=== PATIENT | male | born 1945 | race Caucasian/White ===

== ENCOUNTER 2017-12-06 20:20 | Emergency (ER) | payer MEDICARE, BC ==
--- NOTE | 2017-12-06 21:07 | EDM.PDOC ---
ED HPI GENERAL MEDICAL PROBLEM - General Chief Complaint: Upper Extremity Injury/Pain Stated Complaint: "Have sore left arm and shoulder" Time Seen by Provider: 12/06/17 20:45 Source of Information: Reports: Patient History Limitations: Reports: No Limitations - History of Present Illness INITIAL COMMENTS - FREE TEXT/NARRATIVE: States that over the last 3 wees he has had pain in his left shoulder that will come and go. Has had this in the past and was given steroid shot for it. He states that he can't lay on that side as it hurts. Has been sleeping well because of the discomfort. This morning it was good and he could move it and about noon it started to hurt and it has been getting worse all after noon. He has limited ROM to the shoulder and elbow on the left. Does have a scratch to the distal wrist that he has had for about a week that he scratched on a tree. This is healing and is not red or warm. If he flexes the elbow it will also cause pain to the elbow and the shoulder. Denies any numbness or tingling to the shoulder. No fevers. Denies any trauma to the arm. States that his left side does feel week because it hurts to lift or move it. Onset: Gradual Location: Reports: Upper Extremity, Left Quality: Reports: Throbbing Associated Symptoms: Reports: No Other Symptoms. Denies: Fever/Chills - Related Data Allergies Allergy/AdvReac Type Severity Reaction Status Date / Time hydrochlorothiazide Allergy Dizziness Verified 12/06/17 20:34 Home Meds: Home Meds Calcium Carbonate [Calcium] 1 each PO DAILY 12/01/17 [History] Cholecalciferol (Vitamin D3) [Vitamin D3] 5,000 unit PO DAILY 12/01/17 [History] Glucosamine [Glucosamine Sulfate] 2 each PO DAILY 12/01/17 [History] Hydrochlorothiazide 25 mg PO DAILY 12/01/17 [History] Ibuprofen 200 mg PO DAILY PRN 12/01/17 [History] Lisinopril 20 mg PO BID 12/01/17 [History] Methotrexate 20 mg PO WEEKLY 12/01/17 [History] Metoprolol Tartrate 50 mg PO BID 12/01/17 [History] Multivitamin [Daily Multiple Vitamin] 1 each PO DAILY 12/01/17 [History] Potassium 99 mg PO DAILY 12/01/17 [History] Zinc Gluconate-Zinc Picolinate [Zinc] 30 mg PO DAILY 12/01/17 [History] hydrALAZINE HCl [Hydralazine HCl] 25 mg PO BID 12/01/17 [History] Past Medical History HEENT History: Reports: Hard of Hearing Cardiovascular History: Reports: Bypass, High Cholesterol, Hypertension, SOB on Exertion, Stents Respiratory History: Reports: SOB Other Gastrointestinal History: hemorrhoidectomy Musculoskeletal History: Reports: Arthritis, Gout Other Musculoskeletal History: hx of bursitis. Other Oncologic History: Leukemia - Past Surgical History Cardiovascular Surgical History: Reports: Carotid Endarterectomy Social & Family History - Tobacco Use Smoking Status *Q: Current Every Day Smoker Years of Tobacco use: 55 Packs/Tins Daily: 2 - Alcohol Use Days Per Week of Alcohol Use: 7 Number of Drinks Per Day: 5 Total Drinks Per Week: 35 - Recreational Drug Use Recreational Drug Use: No - Living Situation & Occupation Living situation: Reports: , with Spouse Occupation: Retired Review of Systems - Review of Systems Review Of Systems: See Below Constitutional: Reports: No Symptoms Respiratory: Reports: No Symptoms Cardiovascular: Reports: No Symptoms Musculoskeletal: Reports: Shoulder Pain (left), Arm Pain (left) Skin: Reports: Wound (left wrist) ED EXAM, GENERAL - Physical Exam Exam: See Below Exam Limited By: No Limitations General Appearance: Alert, WD/WN, Moderate Distress Respiratory/Chest: No Respiratory Distress, Lungs Clear, Normal Breath Sounds Cardiovascular: Regular Rate, Rhythm, No Edema Extremities: No Pedal Edema, Limited Range of Motion (to the left shoulder and elbow as it does cause increase in pain. Shoulder is only able to go about 80 degrees when the pain does increase. Increase in pain with flexion of the elbow or movement of the wrist wll cause increase in pain to the elbow area.) Neurological: Alert, Oriented Psychiatric: Normal Affect Skin Exam: Warm, Dry, Wound/Incision (to the distal left wrsit is scabbed. no drainage or redness noted.) Course - Vital Signs Last Recorded V/S: Last Vital Signs Temp 97.6 F 12/06/17 20:42 Pulse 74 12/06/17 20:42 Resp 20 12/06/17 20:42 BP 154/76 H 12/06/17 20:42 Pulse Ox 96 12/06/17 20:42 - Orders/Labs/Meds Labs: Laboratory Tests 12/06/17 12/06/17 Range/Units 20:55 20:55 WBC 10.4 H (5.0-10.0) 10^3/uL RBC 4.56 (4.50-6.00) 10^6/uL Hgb 13.2 L (14.0-18.0) g/dL Hct 38.8 L (40.0-54.0) % MCV 85.1 (82.0-94.0) fL MCH 28.9 (27.0-32.0) pg MCHC 34.0 (33.0-38.0) g/dL RDW Coeff of Flori 16.8 H (11.0-15.0) % Plt Count 190 (150-400) 10^3/uL Neut % (Auto) 76.2 (35-85) % Lymph % (Auto) 9.9 L (10-55) % [place] % (Auto) 12.7 (0-16) % Eos % (Auto) 1.1 (0-5) % Baso % (Auto) 0.1 (0-3) % Neut # (Auto) 7.93 H (1.80-7.00) 10^3/uL Lymph # (Auto) 1.03 (1.00-4.80) 10^3/uL [place] # (Auto) 1.32 H (0.00-0.80) 10^3/uL Eos # (Auto) 0.11 (0.00-0.45) 10^3/uL Baso # (Auto) 0.01 10^3/uL Sodium 127 L (136-145) mEq/L Potassium 4.1 (3.5-5.0) mEq/L Chloride 92 L (98-106) mEq/L Carbon Dioxide 22 (21-32) mmol/L BUN 13 D (7-18) mg/dL Creatinine 1.1 (0.7-1.3) mg/dL Est Cr Clr Drug Dosing TNP Estimated GFR (MDRD) > 60 (>=60) mL/min Glucose 142 H (75-99) mg/dL Uric Acid 7.5 H (3.5-7.2) mg/dL Calcium 8.2 L (8.4-10.1) mg/dL C-Reactive Protein 3.7 H (0.2-0.8) mg/dL Meds: Medications Discontinued Medications Generic Name Dose Route Start Last Admin Trade Name Billy PRN Reason Stop Dose Admin Methylprednisolone Acetate 80 mg 12/06/17 21:17 Depo-Medrol IM 12/06/17 21:18 ONETIME ONE - Re-Assessments/Exams Free Text/Narrative Re-Assessment/Exam: 12/06/17 21:19 discussed lab results with pt and . His sodium is low. He states that has happened in the past and was told that he needs to eat more salt. He hasn't been in the last few days and his says that he has been sweating it out. He states that he will start eating more again. Departure - Departure Time of Disposition: 21:21 Disposition: Home, Self-Care 01 Condition: Good Clinical Impression: Gout Qualifiers: Gout site: shoulder Gout etiology: unspecified cause Chronicity: acute Laterality: left Qualified Code(s): M10.9 - Gout, unspecified - Discharge Information Instructions: Low-Purine Eating Plan, Gout, [id number] Forms: ED Department Discharge Additional Instructions: rest shoulder and wrist as much as possible Ice to the area for comfort eat more salt to increase sodium as instructed by Dr. Preciado Use pain meds that you have at home as needed for comfort Follow up in the clinic if not improving. - Problem List & Annotations (1) Gout SNOMED Code(s): 61037715 Code(s): M10.9 - GOUT, UNSPECIFIED Status: Acute Priority: High Qualifiers: Gout site: shoulder Gout etiology: unspecified cause Chronicity: acute Laterality: left Qualified Code(s): M10.9 - Gout, unspecified
[2017-12-06 21:11] LABS: CHLORIDE,CL 92 mEq/L (98-106); SODIUM,NA 127 mEq/L (136-145)
[2017-12-06] MEDS: methylPREDNISolone Acetate 80 MG/ML SDV IM ONE (21:22)
== END 2017-12-06 21:30 | disposition home or self-care (01) ==
LOC: CC.ED 20:20
DX: M10.9 Gout, unspecified (principal); E78.00 Pure hypercholesterolemia, unspecified; I10 Essential (primary) hypertension; I25.810 Atherosclerosis of coronary artery bypass graft(s) without angina pectoris; F17.210 Nicotine dependence, cigarettes, uncomplicated; Z79.899 Other long term (current) drug therapy
CPT/HCPCS: 36415; 80048; 84550; 85025; 86140; 96372; 99283; J1040

== ENCOUNTER 2021-03-18 19:03 | Inpatient (IN) | payer MEDICARE, BC ==
--- NOTE | 2021-03-18 19:21 | EDM.PDOC ---
ED HPI GENERAL MEDICAL PROBLEM - General Chief Complaint: General Stated Complaint: fall Time Seen by Provider: 03/18/21 19:10 Source of Information: Reports: Patient, EMS History Limitations: Reports: Altered Mental Status (pt is unsure of times.) - History of Present Illness INITIAL COMMENTS - FREE TEXT/NARRATIVE: Pt was found laying on the floor in the bedroom for undetermined amount of time. He is unsure what happened. He isn't able to answer most questions. He doesn't know for sure how long he was there. He has multiple bruises as documented by the nurses. He has ulcers that have been present to his feet that smell horrible and look like they are rotting. Daughter reports that he has had them debrided in the past and he is waiting to get into the wound clinic. He is running a fever and is tachycardic. He denies hitting his head or having headache. No chest pain, SOB, abdominal pain, States his legs are weak. No nausea or vomiting. He denies feeling dizzy. He denies having any chest pain currently or earlier today. Onset: Today Location: Reports: Lower Extremity, Left, Lower Extremity, Right Associated Symptoms: Reports: Cough, Fever/Chills. Denies: Chest Pain, Nausea/Vomiting - Related Data Allergies Allergy/AdvReac Type Severity Reaction Status Date / Time hydrochlorothiazide Allergy Dizziness Verified 03/18/21 19:28 Home Meds: Home Meds Calcium Carbonate [Calcium] 1 each PO DAILY 12/01/17 [History] Cholecalciferol (Vitamin D3) [Vitamin D3] 5,000 unit PO DAILY 12/01/17 [History] Glucosamine [Glucosamine Sulfate] 2 each PO DAILY 12/01/17 [History] Ibuprofen 200 mg PO DAILY PRN 12/01/17 [History] Lisinopril 20 mg PO BID 12/01/17 [History] Methotrexate 20 mg PO WEEKLY 12/01/17 [History] Metoprolol Tartrate 50 mg PO BID 12/01/17 [History] Multivitamin [Daily Multiple Vitamin] 1 each PO DAILY 12/01/17 [History] Potassium 99 mg PO DAILY 12/01/17 [History] Zinc Gluconate-Zinc Picolinate [Zinc] 30 mg PO DAILY 12/01/17 [History] hydrALAZINE HCl [Hydralazine HCl] 25 mg PO BID 12/01/17 [History] Folic Acid 1 mg PO DAILY 12/14/17 [History] Allopurinol [Zyloprim] 300 mg PO DAILY 03/18/21 [History] Ferrous Sulfate 325 mg PO DAILY 03/18/21 [History] Gabapentin [Neurontin] 300 - 600 mg PO BEDTIME 03/18/21 [History] Meloxicam 15 mg PO DAILY 03/18/21 [History] amLODIPine [Norvasc] 5 mg PO DAILY 03/18/21 [History] Past Medical History HEENT History: Reports: Hard of Hearing Cardiovascular History: Reports: Bypass, High Cholesterol, Hypertension, SOB on Exertion, Stents Respiratory History: Reports: SOB Other Gastrointestinal History: hemorrhoidectomy Musculoskeletal History: Reports: Arthritis, Gout Other Musculoskeletal History: hx of bursitis. Oncologic (Cancer) History: Reports: Lung Other Oncologic History: Leukemia - Past Surgical History Cardiovascular Surgical History: Reports: Carotid Endarterectomy Social & Family History - Tobacco Use Tobacco Use Status *Q: Current Every Day Tobacco User - Living Situation & Occupation Living situation: Reports: , with Spouse Occupation: Retired ED ROS GENERAL - Review of Systems Review Of Systems: See Below Constitutional: Reports: Fever, Chills, Weakness HEENT: Reports: No Symptoms Respiratory: Reports: Cough Cardiovascular: Denies: Chest Pain, Edema GI/Abdominal: Denies: Abdominal Pain, Constipation, Diarrhea Musculoskeletal: Reports: Leg Pain, Foot Pain Skin: Reports: Bruising, Wound (toes on the left foot. See nurses description of the multiple bruises that he has.) Neurological: Reports: Difficulty Walking, Weakness. Denies: Headache Psychiatric: Reports: No Symptoms ED EXAM, GENERAL - Physical Exam Exam: See Below General Appearance: Alert, WD/WN, Mild Distress Ears: Normal External Exam, Normal Canal, Normal TMs Nose: Normal Inspection Throat/Mouth: Normal Inspection, Normal Oropharynx, Normal Voice Head: Atraumatic, Normocephalic Neck: Normal Inspection, Supple, Non-Tender, Full Range of Motion Respiratory/Chest: No Respiratory Distress, Lungs Clear, Normal Breath Sounds Cardiovascular: No Edema, Tachycardia, Other (States that he has not had any chest pain and does not have any currently.) GI/Abdominal: Normal Bowel Sounds, Soft, Non-Tender Back Exam: Normal Inspection Extremities: No Pedal Edema, Slow Capillary Refill, Other (Has ulcerations to the toes of the left foot which have been debrided in the past. Decrease in sensation to both feet which is ongoing.) Neurological: Alert, Oriented Skin Exam: Warm, Dry, Intact, Ecchymosis (left hip and buttock, legs bilaterally. See photos and description as per nursing documentation.), Wound/Incision (toes on the left.) Course - Vital Signs Last Recorded V/S: Last Vital Signs Temp 98.0 F 03/18/21 23:57 Pulse 137 H 03/18/21 19:05 Resp 22 H 03/18/21 23:57 BP 103/57 L 03/18/21 23:57 Pulse Ox 97 03/18/21 23:57 - Orders/Labs/Meds Orders: Active Orders 24 hr Category Date Time Status Chest 1V Frontal [CR] Stat Exams 03/18/21 19:15 Taken Head wo Cont [CT] Stat Exams 03/18/21 19:15 Taken CULTURE BLOOD [BC] Stat Lab 03/18/21 19:25 Received CULTURE BLOOD [BC] Stat Lab 03/18/21 19:30 Received CULTURE WOUND + SMEAR [RM] Stat Lab 03/18/21 19:25 Received UA W/MICROSCOPIC [URIN] Stat Lab 03/18/21 19:25 Received cefTRIAXone [Rocephin] Med 03/18/21 20:15 Active 1 gm IVPUSH Q24H Medication Orders Acetaminophen (Acetaminophen 325 Mg Tab) 650 mg PO Q4H PRN PRN Reason: Pain (Mild 1-3)/fever Amlodipine Besylate (Amlodipine 10 Mg Tab) 5 mg PO DAILY [facility] Aspirin (Aspirin 81 Mg Tab.Ec) 81 mg PO WITHBREAKFAST [facility] Ceftriaxone Sodium (Ceftriaxone 1 Gm Vial) 1 gm IVPUSH Q24H [facility] Last Admin: 03/18/21 21:58 Dose: 1 gm Documented by: SARA Enoxaparin Sodium (Enoxaparin 40 Mg/0.4 Ml Syringe) 40 mg SUBCUT BID [facility] Sodium Chloride (Normal Saline) 1,000 mls @ 75 mls/hr IV ASDIRECTED [facility] Last Admin: 03/18/21 23:29 Dose: 75 mls/hr Documented by: SARA Lisinopril (Lisinopril 20 Mg Tab) 20 mg PO BID [facility] Metoprolol Tartrate (Metoprolol Tartrate 25 Mg Tab) 50 mg PO BID [facility] Pantoprazole Sodium (Pantoprazole 40 Mg Vial) 40 mg IVPUSH Q12H [facility] Last Admin: 03/18/21 21:58 Dose: 40 mg Documented by: SARA Vancomycin HCl (Vancomycin 125 Mg Cap) 125 mg PO QID [facility] Last Admin: 03/18/21 23:29 Dose: 125 mg Documented by: SARA Labs: Laboratory Tests 03/18/21 03/18/21 03/18/21 Range/Units 19:15 19:17 19:25 WBC 14.8 H (4.0-11.0) 10^3/uL RBC 3.90 L (4.50-6.00) x10^6/uL Hgb 10.9 L (14.0-18.0) g/dL Hct 32.1 L (42.0-52.0) % MCV 82.3 L (83.0-97.0) fL MCH 27.9 (27.0-32.0) pg MCHC 34.0 (32.0-36.0) g/dL RDW Coeff of Flori 20.5 H (11.0-15.0) % Plt Count 205 (150-400) 10^3/uL Add Manual Diff Yes Neutrophils % (Manual) 58 (35-85) % Band Neutrophils % 5 (0-5) % Lymphocytes % (Manual) 34 (21-55) % Monocytes % (Manual) 2 (2-12) % Eosinophils % (Manual) 1 (0-5) % Sodium 125 L (136-145) mEq/L Potassium 5.1 H D (3.5-5.0) mEq/L Chloride 93 L (98-106) mEq/L Carbon Dioxide 19 L (21-32) mmol/L BUN 23 H D (7-18) mg/dL Creatinine 1.6 H D (0.7-1.3) mg/dL Est Cr Clr Drug Dosing 42.49 mL/min Estimated GFR (MDRD) 42 L (>=60) mL/min Glucose 163 H D (75-99) mg/dL Lactic Acid (0.4-2.0) mmol/L Calcium 8.1 L (8.4-10.1) mg/dL Total Bilirubin 0.8 (0.0-1.0) mg/dL AST 341 H* (15-37) U/L ALT 74 (12-78) U/L Alkaline Phosphatase 105 (46-116) U/L Lactate Dehydrogenase 568 H (100-190) U/L Creatine Kinase 18401 H (35-232) U/L Troponin I High Sens (<=76) pg/mL C-Reactive Protein 24.7 H (0.2-0.8) mg/dL Total Protein 7.4 (6.4-8.2) g/dL Albumin 2.7 L (3.4-5.0) g/dL Amylase 46 (25-115) U/L SARS CoV-2 RNA Rapid MARÍA Negative (NEGATIVE) 03/18/21 03/18/21 Range/Units 19:25 20:28 WBC (4.0-11.0) 10^3/uL RBC (4.50-6.00) x10^6/uL Hgb (14.0-18.0) g/dL Hct (42.0-52.0) % MCV (83.0-97.0) fL MCH (27.0-32.0) pg MCHC (32.0-36.0) g/dL RDW Coeff of Flori (11.0-15.0) % Plt Count (150-400) 10^3/uL Add Manual Diff Neutrophils % (Manual) (35-85) % Band Neutrophils % (0-5) % Lymphocytes % (Manual) (21-55) % Monocytes % (Manual) (2-12) % Eosinophils % (Manual) (0-5) % Sodium (136-145) mEq/L Potassium (3.5-5.0) mEq/L Chloride (98-106) mEq/L Carbon Dioxide (21-32) mmol/L BUN (7-18) mg/dL Creatinine (0.7-1.3) mg/dL Est Cr Clr Drug Dosing mL/min Estimated GFR (MDRD) (>=60) mL/min Glucose (75-99) mg/dL Lactic Acid 3.4 H (0.4-2.0) mmol/L Calcium (8.4-10.1) mg/dL Total Bilirubin (0.0-1.0) mg/dL AST (15-37) U/L ALT (12-78) U/L Alkaline Phosphatase (46-116) U/L Lactate Dehydrogenase (100-190) U/L Creatine Kinase (35-232) U/L Troponin I High Sens 7817.6 H* (<=76) pg/mL C-Reactive Protein (0.2-0.8) mg/dL Total Protein (6.4-8.2) g/dL Albumin (3.4-5.0) g/dL Amylase (25-115) U/L SARS CoV-2 RNA Rapid MARÍA (NEGATIVE) Meds: Medications Generic Name Dose Route Start Last Admin Trade Name Billy PRN Reason Stop Dose Admin Acetaminophen 650 mg 03/18/21 20:37 Acetaminophen 325 Mg Tab PO Q4H PRN Pain (Mild 1-3)/fever Amlodipine Besylate 5 mg 03/19/21 08:00 Amlodipine 10 Mg Tab PO DAILY JAN Aspirin 81 mg 03/19/21 08:00 Aspirin 81 Mg Tab.Ec PO WITHBREAKFAST [facility] Ceftriaxone Sodium 1 gm 03/18/21 20:15 03/18/21 21:58 Ceftriaxone 1 Gm Vial IVPUSH 1 gm Q24H JAN Administration Enoxaparin Sodium 40 mg 03/19/21 08:00 Enoxaparin 40 Mg/0.4 Ml Syringe SUBCUT BID [facility] Sodium Chloride 1,000 mls @ 75 mls/hr 03/18/21 21:30 03/18/21 23:29 Normal Saline IV 75 mls/hr ASDIRECTED JAN Administration Lisinopril 20 mg 03/19/21 08:00 Lisinopril 20 Mg Tab PO BID JAN Metoprolol Tartrate 50 mg 03/19/21 08:00 Metoprolol Tartrate 25 Mg Tab PO BID JAN Pantoprazole Sodium 40 mg 03/18/21 21:00 03/18/21 21:58 Pantoprazole 40 Mg Vial IVPUSH 40 mg Q12H JAN Administration Vancomycin HCl 125 mg 03/18/21 23:00 03/18/21 23:29 Vancomycin 125 Mg Cap PO 125 mg QID JAN Administration Discontinued Medications Generic Name Dose Route Start Last Admin Trade Name Billy PRN Reason Stop Dose Admin Acetaminophen 1,000 mg 03/18/21 19:40 03/18/21 19:43 Acetaminophen 500 Mg Tab PO 03/18/21 19:41 1,000 mg ONETIME ONE Administration Aspirin 324 mg 03/18/21 23:04 03/18/21 23:29 Aspirin 81 Mg Tab.Chew PO 03/18/21 23:05 324 mg ONETIME ONE Administration Enoxaparin Sodium 40 mg 03/19/21 12:00 Enoxaparin 40 Mg/0.4 Ml Syringe SUBCUT Q24H [facility] Enoxaparin Sodium 80 mg 03/18/21 23:15 Enoxaparin 80 Mg/0.8 Ml Syringe SUBCUT Q12H [facility] Sodium Chloride 1,000 mls @ 999 drops/hr 03/18/21 19:30 03/18/21 19:40 Sodium Chloride 0.45% IV 999 drops/hr ASDIRECTED [facility] Administration - Re-Assessments/Exams Free Text/Narrative Re-Assessment/Exam: 03/18/212044 Discussed abnormal lab results with pt and family. They request he is transferred for further care and would want to have angiogram if necessary. 03/18/212154 One call at [facility] states that they are full [phone] One call at [facility] states that they are full [phone] Contacted the [facility] transfer center and discussed pt with nurse who is trying to find bed placement. They will return call when bed found. 03/18/212154 [facility] beds [facility] full and pt is considered stable. Pt and daughter and son are informed that transfer is not possible at this time and he would be staying here at this time. 2209- Discussed pt with Dr. Ellsworth hospitalist and he did states that the he could have had some "troponin runoff" from the rhabdomyolysis and laying on the floor for extended period of time. He recommended to anticoagulate. Will repeat labs in the morning Departure - Departure Time of Disposition: 20:40 Disposition: Admitted As Inpatient 66 Clinical Impression: Sepsis Qualifiers: Sepsis type: sepsis due to unspecified organism Sepsis acute organ dysfunction status: with acute organ dysfunction Severe sepsis acute organ dysfunction type: unspecified Severe sepsis shock status: without septic shock Qualified Code(s): A41.9 - Sepsis, unspecified organism; R65.20 - Severe sepsis without septic shock Myocardial infarction Qualifiers: Myocardial infarction type: non-ST elevation myocardial infarction Qualified Code(s): I21.4 - Non-ST elevation (NSTEMI) myocardial infarction Foot ulcer, left Qualifiers: Non-pressure ulcer stage: limited to breakdown of skin Qualified Code(s): L97.521 - Non-pressure chronic ulcer of other part of left foot limited to breakdown of skin Diarrhea Qualifiers: Diarrhea type: presumed infectious Qualified Code(s): R19.7 - Diarrhea, unspecified - Discharge Information *PRESCRIPTION DRUG MONITORING PROGRAM REVIEWED*: Not Applicable *COPY OF PRESCRIPTION DRUG MONITORING REPORT IN PATIENT JOHANNE: Not Applicable Sepsis Event Note (ED) - Focused Exam Vital Signs: Vital Signs Temp Temp Pulse Resp BP Pulse Ox 03/18/21 20:13 99.1 F 03/18/21 19:45 98.8 F 17 117/69 100 03/18/21 19:43 100.5 F 03/18/21 19:30 21 H 116/74 100 03/18/21 19:15 28 H 125/70 100 03/18/21 19:05 100.5 F 137 H 28 H 134/71 98 - Problem List Review Problem List Initiated/Reviewed/Updated: Yes - My Orders Last 24 Hours: My Active Orders 03/18/21 19:15 Chest 1V Frontal [CR] Stat Head wo Cont [CT] Stat 03/18/21 19:25 CULTURE BLOOD [BC] Stat CULTURE WOUND + SMEAR [RM] Stat UA W/MICROSCOPIC [URIN] Stat 03/18/21 19:30 CULTURE BLOOD [BC] Stat 03/18/21 20:15 cefTRIAXone [Rocephin] 1 gm IVPUSH Q24H - Assessment/Plan Admission H&P: Please use this note as an admission H&P Last 24 Hours: My Active Orders 03/18/21 19:15 Chest 1V Frontal [CR] Stat Head wo Cont [CT] Stat 03/18/21 19:25 CULTURE BLOOD [BC] Stat CULTURE WOUND + SMEAR [RM] Stat UA W/MICROSCOPIC [URIN] Stat 03/18/21 19:30 CULTURE BLOOD [BC] Stat 03/18/21 20:15 cefTRIAXone [Rocephin] 1 gm IVPUSH Q24H Plan: Will admit to this facility acute care and Dr. Panda service. repeat labs in the AM IV fluids to hydrate and for the rhabdomyolysis monitor BP and heart rate closely will start lovenox tonight consult PT for wound care and strengthening Discussed labs and pt with Dr. Panda
[2021-03-18] MEDS ORDERED: Sodium Chloride 0.45% 1,000 ML IV SCH (19:30)
[2021-03-18] MEDS ORDERED: Acetaminophen 500 MG Tab PO ONE (19:40)
[2021-03-18] MEDS ORDERED: cefTRIAXone 1 GM Vial IVPUSH SCH (20:15)
[2021-03-18] MEDS ORDERED: Acetaminophen 325 MG Tab PO PRN (20:37)
[2021-03-18] MEDS ORDERED: Pantoprazole 40 MG Vial IVPUSH SCH (21:00)
[2021-03-18] MEDS ORDERED: Aspirin 81 MG Tab.Chew PO ONE (23:04)
[2021-03-18] MEDS ORDERED: Enoxaparin 80 MG/0.8 ML Syringe SUBCUT SCH (23:15)
[2021-03-18] MEDS: Vancomycin 125 MG Cap PO SCH (23:29)
[2021-03-18] MEDS: Sodium Chloride 0.9% 1,000 ML IV SCH (23:29)
[2021-03-19] MEDS: Vancomycin 125 MG Cap PO SCH (07:57)
[2021-03-19] MEDS ORDERED: amLODIPine 10 MG Tab PO SCH (08:00)
[2021-03-19] MEDS ORDERED: Pantoprazole 40 MG Vial IVPUSH SCH ×2 (08:00)
[2021-03-19] MEDS ORDERED: Enoxaparin 40 MG/0.4 ML Syringe SUBCUT SCH ×2 (08:00→12:00)
[2021-03-19] MEDS ORDERED: Lisinopril 20 MG Tab PO SCH (08:00)
[2021-03-19] MEDS ORDERED: Aspirin 81 MG Tab.EC PO SCH (08:00)
[2021-03-19] MEDS ORDERED: Metoprolol Tartrate 25 MG Tab PO SCH (08:00)
[2021-03-19] MEDS: Sodium Chloride 0.9% 1,000 ML IV SCH (08:28)
[2021-03-19] MEDS ORDERED: Sodium Chloride 0.9% 1,000 ML IV SCH (10:18)
[2021-03-19] MEDS ORDERED: Enoxaparin 30 MG/0.3 ML Syringe SUBCUT SCH (12:00)
--- NOTE | 2021-03-23 11:36 | PN ---
DATE: 03/19/2021 S: Mr. Jansen was admitted last evening by Esperanza Dale. It sounds like this gentleman has had some ongoing issues with necrotic foot ulcer that is now infected and he is scheduled to see Vascular Surgery next week. He has been on different antibiotics by Dr. Preciado as an outpatient orally and nevertheless he was apparently found on the floor by one of his children, was brought to our facility for such. Esperanza Dale evaluated him and he had an elevated white count, was hyponatremic, and was found to have a troponin over 9000. His CK level was 13,000. He had been lying on the floor for the majority of a day. He was ultimately admitted for possible sepsis evaluation as his lactic acid was elevated at 4.3, and he was starting to have profuse diarrhea. There was concern about C. diff. His C. diff came back negative. We are waiting on stool studies. He has not spiked any temps, but his blood pressures have been a little tenuous around 100 systolic. His pulse has been in the one teens. He has not had any fever since he has been here. He has been started on Rocephin. Esperanza put him I believe on oral vancomycin for concern of C. diff, but that is negative. He has not had any chest pain since his admission. He denies any shortness of breath and he did not have any obvious EKG changes, although his troponin was strikingly high. O: GENERAL: This gentleman is pleasant. He is cooperative. He is a little lethargic, but when he does arouse, he answers questions appropriately and does not appear in any distress. He denies any pain. NECK: Neck veins are nondistended. LUNGS: Lung sounds are diminished throughout all lung jeffery. CARDIAC: Tones are tachycardic and regular. ABDOMEN: Soft. Good bowel sounds are noted. EXTREMITIES: Have edema from the mid burch down bilaterally with pallor. He has necrotic ulcers of the left foot at the digital area 3 through 5. There is active drainage. He has very poor pulses in each foot. ASSESSMENT: 1. SEPSIS, LIKELY SECONDARY TO A WOUND INFECTION. 2. FALL WITH ELEVATED TROPONIN AND CK, POSSIBLE MYOCARDIAL INFARCTION. 3. HYPONATREMIA. 4. ACUTE EXACERBATION OF CHRONIC RENAL FAILURE. 5. SEVERE PERIPHERAL VASCULAR DISEASE. 6. APPARENT HISTORY OF ACTIVE LUNG CANCER. P: I had a long discussion with the patient and reviewed the case with Esperanza Dale who admitted this gentleman last night. He obviously is tenuous and is critical. Esperanza tried to transfer him last night, but could not get him to any facility in the state due to the COVID situation. He needs a vascular surgeon. I am going to add vancomycin to his regimen as his foot looks infected and he appears septic. We are going to bolus him some more fluids as his pressures are slightly low. Esperanza had talked to Cardiology about this sensitive troponin level. They feel that it is a misnomer given his situation, given his lack of chest pain or EKG changes. We have him on Lovenox. He is on low-dose Toprol and we started him on a daily aspirin. We will continue to monitor that situation. The patient will have a bolus of fluids now, we will run him around 125 an hour and monitor him for any signs of failure at this point. He certainly needs his Vascular Surgery consult next week and we will continue to try to transfer him. He has 1 daughter who has called and I believe wants to take him AMA to [facility]'s ER which we explained we cannot be part of. He is a code level 2, does not want anything aggressive done. MOHAMUD/ASHOK /[id number]
--- NOTE | 2021-03-23 11:36 | PN ---
DATE: 03/19/2021 Mr. Jansen's daughter presented to discuss transfer. I explained to her that every facility in [place] is on diversion other than for trauma, strokes, etc. She has been in contact with a nurse from [facility], who reportedly says just to bring him to the emergency room. I explained that we cannot do that, but we need a receiving physician. She is aware and wants to take him AMA to the ER as apparently a vascular surgeon there has encouraged this. I explained that the risk of him leaving our facility without supervision without ambulance transfer and the fact that he is sick. She is willing to forego that risk and wants him to go AMA. AMA paperwork is presented to the patient and she will sign, so she can take him to [facility] ER against our advice. MOHAMUD/ASHOK /[id number]
== END 2021-03-19 11:35 | disposition left against medical advice (07) | DRG 871 ==
LOC: SUPCPDRO 19:03 → CC.ED 19:03 → CC.MS 20:34 → INTOOBSV 20:34 → OBSVTOIN 20:34 → UNDOADMOB 20:34 → CC.MS 20:37 → OBSVTOIN 20:37
PROVIDERS: ADMIT Physician Assistant Medical; ATTEND Family Medicine
DX: R05 Cough (principal); A41.9 Sepsis, unspecified organism; I21.4 Non-ST elevation (NSTEMI) myocardial infarction; E87.1 Hypo-osmolality and hyponatremia; N17.9 Acute kidney failure, unspecified; I96 Gangrene, not elsewhere classified; R65.20 Severe sepsis without septic shock; L97.521 Non-pressure chronic ulcer of other part of left foot limited to breakdown of skin; R19.7 Diarrhea, unspecified; Z95.5 Presence of coronary angioplasty implant and graft; I12.9 Hypertensive chronic kidney disease with stage 1 through stage 4 chronic kidney disease, or unspecified chronic kidney disease; N18.9 Chronic kidney disease, unspecified; H91.90 Unspecified hearing loss, unspecified ear; E78.00 Pure hypercholesterolemia, unspecified; F17.200 Nicotine dependence, unspecified, uncomplicated; W19.XXXA Unspecified fall, initial encounter; F17.210 Nicotine dependence, cigarettes, uncomplicated; Z85.6 Personal history of leukemia; M19.90 Unspecified osteoarthritis, unspecified site; M10.9 Gout, unspecified; Z20.822 Contact with and (suspected) exposure to COVID-19; I73.9 Peripheral vascular disease, unspecified; Z95.1 Presence of aortocoronary bypass graft; Z88.8 Allergy status to other drugs, medicaments and biological substances; Z79.899 Other long term (current) drug therapy; Z85.118 Personal history of other malignant neoplasm of bronchus and lung; L97.529 Non-pressure chronic ulcer of other part of left foot with unspecified severity
CPT/HCPCS: 36415; 70450; 71045; 80053; 82150; 82550; 83605; 83615; 84484; 85025; 86140; 87040; 87045; 87046; 87070; 87077; 87088; 87186; 87205; 87493; 93005; 93010; 99285-25; A9270-GY; C9113; J0696; J1650; J7030; U0002